=== PATIENT | female | born 1985 | race African-American/Black ===

== ENCOUNTER 2020-11-21 14:40 | Emergency (ER) | payer OTHER, MEDICAID ==
[~2020-11-21] VITALS: Ht 160 cm; Wt 63.0 kg
[~2020-11-21 14:40] MED LIST: FERR-43 PO; PREN-88
[2020-11-21 16:29] LABS: CLARITY URINE CLOUDY (CLEAR); COLOR URINE YELLOW (YELLOW); KETONES URINE 1+ (NEGATIVE); LEUKOCYTE ESTERASE URINE TRACE (NEGATIVE); NITRITE URINE NEGATIVE (NEGATIVE); OCCULT BLOOD URINE NEGATIVE (NEGATIVE); PROTEIN URINE TRACE (NEGATIVE); SPECIFIC GRAVITY URINE 1.026 (1.005-1.030); UROBILINOGEN URINE 0.2 E.U./dL (0.2-1.0)
[2020-11-21] MEDS ORDERED: HYDRALAZINE 20MG/ML VIAL IV ONE (16:30)
[2020-11-21 16:46] LABS: BASOPHILS % 0.9 % (0.0-2.0); EOSINOPHILS % 1.7 % (0.0-5.0); HEMATOCRIT. 32.1 % (36.0-48.0); HEMOGLOBIN. 10.9 g/dL (12.0-16.0); LYMPHOCYTES % 35.7 % (20.0-50.0); MEAN CORPUSCULAR VOLUME 88.1 fL (81.0-99.0); MEAN PLATELET VOLUME 8.4 fl (7.4-10.4); MONOCYTES % 8.6 % (2.0-8.0); NEUTROPHILS % 53.1 % (40.0-76.0); PLATELET 322 x1000/uL (130-400); RED BLOOD CELL COUNT 3.65 mill/uL (4.2-5.4); RED CELL DISTRIBUTION WIDTH 17.1 % (11.6-14.6)
[2020-11-21 16:49] LABS: CHLORIDE 103 mEq/L (98-107)
[2020-11-21] MEDS ORDERED: LISINOPRIL 10MG TABLET PO NR (17:00)
[2020-11-21 17:04] LABS: HCG SCREEN NEGATIVE
[2020-11-21] MEDS ORDERED: LISI10TA26 MT (18:11)
[2020-11-21] MEDS ORDERED: KETOROLAC 15MG/ML VIAL IV ONE (18:15)
[2020-11-21 18:41] VITALS: BP 165/95
== END 2020-11-21 18:40 | disposition home or self-care (01) ==
LOC: ER 14:59
DX: I10 Essential (primary) hypertension (principal)
CPT/HCPCS: 36415; 71045; 80053; 81003; 81025; 84484; 84703; 85025; 96374; 96375; 99284; J0360; J1885

== ENCOUNTER 2020-12-15 10:52 | Inpatient (IN) | payer OTHER, MEDICAID ==
[~2020-12-15] VITALS: Ht 160 cm; Wt 63.0 kg
[~2020-12-15 10:52] MED LIST changes: +LISI10TA26 MT
[2020-12-15] MEDS ORDERED: DIPHENHYDRAMINE 50MG/ML VIAL IV ONE (11:45)
[2020-12-15] MEDS ORDERED: METHYLPREDNISOLONE SOD SUCC 125 MG/2 ML VIAL IV ONE (11:45)
[2020-12-15] MEDS ORDERED: HYDRALAZINE 20MG/ML VIAL IV ONE ×2 (11:45→14:30)
[2020-12-15 12:05] LABS: BASOPHILS % 0.4 % (0.0-2.0); EOSINOPHILS % 3.3 % (0.0-5.0); HEMATOCRIT. 32.9 % (36.0-48.0); HEMOGLOBIN. 11.2 g/dL (12.0-16.0); LYMPHOCYTES % 27.2 % (20.0-50.0); MEAN CORPUSCULAR HEMOGLOBIN 29.4 pg (28.0-32.0); MEAN CORPUSCULAR VOLUME 86.6 fL (81.0-99.0); MEAN PLATELET VOLUME 7.5 fl (7.4-10.4); MONOCYTES % 11.5 % (2.0-8.0); NEUTROPHILS % 57.6 % (40.0-76.0); PLATELET 370 x1000/uL (130-400); RED CELL DISTRIBUTION WIDTH 15.9 % (11.6-14.6)
[2020-12-15 12:09] LABS: CHLORIDE 105 mEq/L (98-107)
[2020-12-15] MEDS ORDERED: FUROSEMIDE 20MG/2ML VIAL IVP ONE (14:15)
[2020-12-15] MEDS ORDERED: HYDRALAZINE HCL 10MG TABLET PO ONE (14:30)
[2020-12-15 17:05] VITALS: BP 116/90
[2020-12-15] MEDS ORDERED: NICARDIPINE 50 MG in SODIUM CHLORIDE 0.9% 230 ML IV PRN (17:30)
[2020-12-15] MEDS ORDERED: ACETAMINOPHEN 325MG TABLET PO PRN (17:45)
[2020-12-15] MEDS ORDERED: AMLODIPINE 10MG TABLET PO SCH (17:45)
[2020-12-15] MEDS ORDERED: DIPHENHYDRAMINE 50MG/ML VIAL IV PRN (17:45)
[2020-12-15] MEDS ORDERED: CLONIDINE 0.1MG TABLET PO PRN (17:45)
[2020-12-16] MEDS ORDERED: METHYLPREDNISOLONE SOD SUCC 40 MG/ML VIAL IV SCH (09:00)
== END 2020-12-15 18:15 | disposition left against medical advice (07) | DRG 916 ==
LOC: ER 10:52 → MICUSO 12:41 → EDBEDREQTM 12:53 → EDBEDREQ 12:53
PROVIDERS: ADMIT Hospitalist; ATTEND Hospitalist
PROC: 30233K1 Transfusion of Nonautologous Frozen Plasma into Peripheral Vein, Percutaneous Approach (ICD-10-PCS; principal; 2020-12-15)
DX: T78.3XXA Angioneurotic edema, initial encounter (principal); I10 Essential (primary) hypertension; Z79.899 Other long term (current) drug therapy; Z88.8 Allergy status to other drugs, medicaments and biological substances; Z83.3 Family history of diabetes mellitus; Z80.9 Family history of malignant neoplasm, unspecified
CPT/HCPCS: 36415; 71045; 80053; 83880; 84484; 85025; 86850; 86900; 86927; 93005; 99291; J0360; J1200; J1940; J2930; P9017

== ENCOUNTER 2021-07-22 10:51 | Emergency (ER) | payer OTHER, MEDICAID ==
[~2021-07-22] VITALS: Ht 160 cm; Wt 63.0 kg
[~2021-07-22 10:51] MED LIST changes: -FERR-43 PO; -PREN-88
[2021-07-22 12:11] LABS: BASOPHILS % 0.4 % (0.0-2.0); HEMATOCRIT. 35.5 % (36.0-48.0); LYMPHOCYTES % 31.1 % (20.0-50.0); MEAN CORPUSCULAR HEMOGLOBIN 28.5 pg (28.0-32.0); MEAN CORPUSCULAR VOLUME 83.9 fL (81.0-99.0); MEAN PLATELET VOLUME 7.8 fl (7.4-10.4); MONOCYTES % 10.6 % (2.0-8.0); NEUTROPHILS % 52.9 % (40.0-76.0); PLATELET 333 x1000/uL (130-400); RED BLOOD CELL COUNT 4.23 mill/uL (4.2-5.4); RED CELL DISTRIBUTION WIDTH 17.5 % (11.6-14.6)
[2021-07-22 12:13] LABS: CHLORIDE 106 mEq/L (98-107)
[2021-07-22 12:48] LABS: HCG SCREEN NEGATIVE
[2021-07-22] MEDS ORDERED: KETOROLAC 15MG/ML VIAL IM ONE (13:00)
[2021-07-22] MEDS ORDERED: AMLO10TA4 MT (13:25)
[2021-07-22 13:27] VITALS: BP 187/104
== END 2021-07-22 13:31 | disposition home or self-care (01) ==
LOC: ER 10:51
DX: R07.89 Other chest pain (principal)
CPT/HCPCS: 71045; 80053; 84484; 84703; 85025; 93005; 96372; 99285; J1885

== ENCOUNTER 2021-07-25 17:32 | Emergency (ER) | payer OTHER, MEDICAID ==
[~2021-07-25] VITALS: Ht 157.5 cm; Wt 77.0 kg
[~2021-07-25 17:32] MED LIST changes: +AMLO10TA4 MT
[2021-07-25 17:44] VITALS: BP 192/117
[2021-07-25] MEDS ORDERED: ONDANSETRON 4MG ODT PO ONE (20:45)
[2021-07-25] MEDS ORDERED: HYDROCODONE/ACETAMINOPHEN 5/325MG TABLET PO ONE (20:45)
== END 2021-07-25 20:40 | disposition left against medical advice (07) ==
LOC: ER 17:50
DX: R07.89 Other chest pain (principal); R06.02 Shortness of breath; I10 Essential (primary) hypertension; F15.10 Other stimulant abuse, uncomplicated
CPT/HCPCS: 71045; 93005; 99283

== ENCOUNTER 2021-08-05 19:40 | Emergency (ER) | payer MEDICAID, OTHER ==
[~2021-08-05] VITALS: Ht 160 cm; Wt 61.8 kg
[2021-08-05 19:49] VITALS: BP 161/110
[2021-08-05 21:40] LABS: BASOPHILS % 0.4 % (0.0-2.0); EOSINOPHILS % 3.3 % (0.0-5.0); HEMATOCRIT. 35.2 % (36.0-48.0); LYMPHOCYTES % 41.1 % (20.0-50.0); MEAN CORPUSCULAR HEMOGLOBIN 28.9 pg (28.0-32.0); MEAN CORPUSCULAR VOLUME 84.9 fL (81.0-99.0); MEAN PLATELET VOLUME 7.4 fl (7.4-10.4); MONOCYTES % 11.8 % (2.0-8.0); NEUTROPHILS % 43.4 % (40.0-76.0); PLATELET 358 x1000/uL (130-400); RED BLOOD CELL COUNT 4.14 mill/uL (4.2-5.4); RED CELL DISTRIBUTION WIDTH 18.2 % (11.6-14.6)
[2021-08-05 21:46] LABS: CHLORIDE 101 mEq/L (98-107)
[2021-08-05 21:47] LABS: HCG SCREEN NEGATIVE
== END 2021-08-05 21:28 | disposition left against medical advice (07) ==
LOC: ER 19:40
DX: Z53.21 Procedure and treatment not carried out due to patient leaving prior to being seen by health care provider (principal); R20.0 Anesthesia of skin
CPT/HCPCS: 36415; 80053; 84703; 85025; 99283

== ENCOUNTER 2021-08-07 16:28 | Emergency (ER) | payer MEDICAID ==
[~2021-08-07] VITALS: Ht 160 cm; Wt 65.0 kg
[2021-08-07 16:33] VITALS: BP 165/115
[2021-08-07 17:20] LABS: BASOPHILS % 1.1 % (0.0-2.0); EOSINOPHILS % 2.7 % (0.0-5.0); HEMOGLOBIN. 11.7 g/dL (12.0-16.0); LYMPHOCYTES % 35.2 % (20.0-50.0); MEAN CORPUSCULAR HEMOGLOBIN 28.3 pg (28.0-32.0); MEAN PLATELET VOLUME 7.5 fl (7.4-10.4); MONOCYTES % 11.3 % (2.0-8.0); NEUTROPHILS % 49.7 % (40.0-76.0); PLATELET 369 x1000/uL (130-400); RED BLOOD CELL COUNT 4.12 mill/uL (4.2-5.4)
[2021-08-07 17:24] LABS: CHLORIDE 105 mEq/L (98-107)
[2021-08-07 17:34] LABS: HCG SCREEN NEGATIVE
== END 2021-08-07 20:00 | disposition left against medical advice (07) ==
LOC: ER 16:28
DX: R07.89 Other chest pain (principal); R20.0 Anesthesia of skin
CPT/HCPCS: 36415; 71045; 80053; 83880; 84484; 84703; 85025; 93005; 99285

== ENCOUNTER 2021-08-09 18:29 | Emergency (ER) | payer MEDICAID ==
[~2021-08-09] VITALS: Ht 160 cm; Wt 61.3 kg
[2021-08-09 18:32] VITALS: BP 166/115
[2021-08-09 19:33] LABS: BASOPHILS % 0.6 % (0.0-2.0); EOSINOPHILS % 2.3 % (0.0-5.0); HEMATOCRIT. 34.8 % (36.0-48.0); HEMOGLOBIN. 11.6 g/dL (12.0-16.0); LYMPHOCYTES % 32.2 % (20.0-50.0); MEAN CORPUSCULAR HEMOGLOBIN 28.5 pg (28.0-32.0); MEAN CORPUSCULAR VOLUME 85.5 fL (81.0-99.0); MEAN PLATELET VOLUME 7.8 fl (7.4-10.4); MONOCYTES % 10.6 % (2.0-8.0); NEUTROPHILS % 54.3 % (40.0-76.0); PLATELET 374 x1000/uL (130-400); RED BLOOD CELL COUNT 4.08 mill/uL (4.2-5.4); RED CELL DISTRIBUTION WIDTH 18.4 % (11.6-14.6)
[2021-08-09 19:43] LABS: CHLORIDE 106 mEq/L (98-107)
[2021-08-09 19:44] LABS: HCG SCREEN NEGATIVE
[2021-08-09] MEDS ORDERED: ACETAMINOPHEN 325MG TABLET PO ONE (21:00)
== END 2021-08-09 21:42 | disposition home or self-care (01) ==
LOC: ER 18:29
DX: R07.89 Other chest pain (principal); R20.0 Anesthesia of skin; R53.1 Weakness; I10 Essential (primary) hypertension
CPT/HCPCS: 36415; 71045; 80053; 81025; 82962; 84484; 84703; 85025; 93005; 99285

== ENCOUNTER 2022-07-16 09:34 | Emergency (ER) | payer MEDICAID, OTHER ==
[~2022-07-16] VITALS: Ht 165.1 cm; Wt 62.6 kg
[2022-07-16] MEDS ORDERED: LEVETIRACETAM 1000MG PREMIX 100 ML IV ONE ×2 (11:00→12:00)
[2022-07-16] MEDS ORDERED: NICARDIPINE 40MG/200ML PREMIX 200 ML IV PRN ×3 (11:00→11:45)
[2022-07-16 11:09] LABS: HEMATOCRIT. 34.3 % (36.0-48.0); MEAN CORPUSCULAR HEMOGLOBIN 27.1 pg (28.0-32.0); MEAN CORPUSCULAR VOLUME 84.4 fL (81.0-99.0); PLATELET 376 x1000/uL (130-400); RED BLOOD CELL COUNT 4.06 mill/uL (4.2-5.4); RED CELL DISTRIBUTION WIDTH 19.2 % (11.6-14.6)
[2022-07-16 11:14] LABS: CHLORIDE 106 mEq/L (98-107)
[2022-07-16 11:21] LABS: ETHANOL BLOOD < 10 mg/dL
[2022-07-16 11:28] LABS: CLARITY URINE CLEAR (CLEAR); COLOR URINE YELLOW (YELLOW); KETONES URINE 2+ (NEGATIVE); LEUKOCYTE ESTERASE URINE TRACE (NEGATIVE); NITRITE URINE NEGATIVE (NEGATIVE); OCCULT BLOOD URINE 1+ (NEGATIVE); PROTEIN URINE TRACE (NEGATIVE); SPECIFIC GRAVITY URINE 1.011 (1.005-1.030); UROBILINOGEN URINE 0.2 E.U./dL (0.2-1.0)
[2022-07-16] MEDS ORDERED: LEVETIRACETAM 1000MG PREMIX 100 ML IV NR (11:30)
[2022-07-16 11:39] LABS: HCG SCREEN NEGATIVE
[2022-07-16 12:07] LABS: PLATELET ESTIMATE NORMAL
[2022-07-16 12:09] LABS: *AMPHETAMINES SCREEN URINE NEGATIVE (NEGATIVE); *BARBITURATES SCREEN URINE NEGATIVE (NEGATIVE); *BENZODIAZEPINES SCREEN URINE NEGATIVE (NEGATIVE); *COCAINE SCREEN URINE NEGATIVE (NEGATIVE); METHADONE URINE SCREEN NEGATIVE (NEGATIVE); OPIATES URINE SCREEN NEGATIVE (NEGATIVE); PHENCYCLIDINE URINE SCREEN NEGATIVE (NEGATIVE)
[2022-07-16 12:10] LABS: CANNABINOID URINE SCREEN PRESUMTIVE POSITIVE (NEGATIVE)
[2022-07-16] MEDS ORDERED: THIAMINE HCL IV NR (12:30)
[2022-07-16] MEDS ORDERED: SODIUM CHLORIDE 0.9% IV NR (12:30)
[2022-07-16 12:34] LABS: INR 1.1; PROTHROMBIN TIME 11.4 sec (9.6-11.0)
[2022-07-16] MEDS ORDERED: CEFTRIAXONE 1GM PREMIX 50 ML IV ONE (14:00)
[2022-07-16] MEDS ORDERED: ASPIRIN 325MG EC TABLET PO ONE (14:00)
[2022-07-16] MEDS ORDERED: SODIUM CHLORIDE 0.9% 500 ML IV ONE (14:00)
[2022-07-16] MEDS ORDERED: LORAZEPAM 2MG/ML CPJ IV ONE (15:45)
[2022-07-16 16:10] VITALS: BP 160/90
== END 2022-07-16 17:00 | disposition admitted as inpatient to this hospital (09) ==
LOC: ER 09:34 → EDBEDREQ 11:47 → EDBEDREQSVC 11:47 → CANBEDREQ 16:35 → ER 17:00
DX: I70.90 Unspecified atherosclerosis (principal); I10 Essential (primary) hypertension; F15.10 Other stimulant abuse, uncomplicated; Z20.822 Contact with and (suspected) exposure to COVID-19
CPT/HCPCS: 36415; 70450; 70496; 70498; 71045; 80053; 80305; 80307; 80320; 80329; 81003; 81025; 82962; 83880; 84484; 84703; 85025; 85610; 86850; 86900; 86901; 87426; 93005; 96365; 96367; 96368; 96375; 99291; C9803; J0696; J1953; J2060; J3411; J7040; J7050; Z7610; G0480

== ENCOUNTER 2023-04-28 17:32 | Emergency (ER) | payer MEDICAID ==
[~2023-04-28] VITALS: Ht 165.1 cm; Wt 82.0 kg
[2023-04-28 17:48] VITALS: O2SAT 100
[2023-04-28] MEDS: ACETAMINOPHEN 325MG TABLET PO ONE (20:45)
[2023-04-28 22:00] VITALS: BP 206/109; PULSE 89; RESP 18; TEMP 98.1
[2023-04-28] MEDS ORDERED: AMLO10TA80 MT (22:35)
[2023-04-28] MEDS ORDERED: AMLO10TA4 MT (22:35)
[2023-04-28] MEDS ORDERED: CLONIDINE 0.1MG TABLET PO ONE (22:45)
== END 2023-04-28 22:50 | disposition home or self-care (01) ==
LOC: ER 17:45
DX: M25.571 Pain in right ankle and joints of right foot (principal); I10 Essential (primary) hypertension; F15.10 Other stimulant abuse, uncomplicated; Z88.8 Allergy status to other drugs, medicaments and biological substances; Z86.73 Personal history of transient ischemic attack (TIA), and cerebral infarction without residual deficits
CPT/HCPCS: 73610; 99283; Z7610 ×2